=== PATIENT | female | born 1950 | race Two or more races ===

== ENCOUNTER 2021-01-22 15:01 | Emergency (ER) | payer OTHER ==
[~2021-01-22] VITALS: Ht 157.5 cm; Wt 54.4 kg
[~2021-01-22 15:01] MED LIST: ASPIRIN EC81 MG PO; ATIVAN1 MG PO; ATORVASTATIN CA10 MG PO; CETIRIZINE HCL10 MG PO; DOCUSATE SODIU100 MG PO; GABAPENTIN100 MG PO; LISINOPRIL10 MG PO; METOPROLOL TART50 MG PO; NORVASC5 MG PO; PHOS-NAK PACKE1 EACH PO; REMERON15 MG PO; SODIUM CHLORIDE1 GM PO; TRICOR48 MG PO; VITAMIN B-1100 M1 PO; VITAMIN D325 MCG PEG
[2021-01-22 20:04] VITALS: BP 149/90
== END 2021-01-22 20:06 ==
LOC: ER 16:19
DX: M25.551 Pain in right hip (principal); M54.89 Other dorsalgia; W18.30XA Fall on same level, unspecified, initial encounter; Y92.099 Unspecified place in other non-institutional residence as the place of occurrence of the external cause; Z91.81 History of falling
CPT/HCPCS: 70450; 72125; 72170; 99284